=== PATIENT | male | born 1960 | race Caucasian/White ===

== ENCOUNTER → 2016-09-13 | Outpatient (CLI) | payer OTHER | LOC: MOB LAB 12:30 | PROVIDERS: ATTEND Physician Assistant | DX: L02.11 Cutaneous abscess of neck (principal); F17.210 Nicotine dependence, cigarettes, uncomplicated | CPT/HCPCS: 87070; 87077; 87186; 87205 ==

== ENCOUNTER 2016-10-12 07:16 | Emergency (ER) | payer OTHER ==
[2016-10-12] MEDS ORDERED: Lidocaine 1% 10 MG/ML - 20 ML VIAL SUBCUT ONE (07:39)
[2016-10-12] MEDS ORDERED: DIPH,PERTUSS,TET(ADACEL) VAC/PF 0.5 ML (Tdap) IM ONE (07:39)
[2016-10-12 07:42] VITALS: RESP 16; TEMP 97
[2016-10-12] MEDS ORDERED: BACITRACIN 0.9 GM PACKET OINT TOPICAL ONE ×2 (08:07→08:45)
--- NOTE | 2016-10-12 08:53 | PDOC ---
Fall HPI - General Chief Complaint: Fall Stated Complaint: fall with lac to head Date Seen by Provider: 10/12/16 Time Seen by Provider: 07:20 Source: POSITIVE: Patient, Spouse Exam Limitations: POSITIVE: No limitations Nurse's Notes Reviewed & Considered: Yes - History of Present Illness Initial Comments: The patient is a 56-year-old male. Patient got out of bed suddenly to go to the bathroom. He may have had a brief syncopal episode and he struck his head chest above the left eyebrow on the corner of the table, sustaining a 2.2 cm laceration here. See diagram. He also struck his left lateral thorax. He had no loss of consciousness after his head trauma. He got up and ambulated after the incident. No focal neurologic symptoms. No chest pain or palpitations. No GI or symptoms. Patient states he has a history of insomnia and he took 2 trazodone tablets last night for going to bed. Have you received a tetanus shot in the past 10 years?: No Body Location Affected: REPORTS: Head, Chest Timing: REPORTS: Abrupt Duration: 1/2 hour Severity: Moderate Context of Fall: REPORTS: Became Dizzy, Fainted (Possibly) Location of Fall: REPORTS: Home Fell From Height (in feet): 0 Quality: REPORTS: "Pain" (Left lateral ribs) Associated Symptoms: REPORTS: Recalls Injury, Recalls Coming to ER, Blow to Head. DENIES: Dazed, Seizure, Trouble Breathing, Memory Impairment, Lost Consciousness, Other Location of Injuries / Pain: REPORTS: Left, Head, Other (Left lateral thorax) Any Prior Injuries Related to Current Complaint?: No - Patient Home Medications Home Medications: Home Medications Lisinopril/Hydrochlorothiazide [Lisinopril-Hctz 20-12.5 Mg Tab] 1 unit PO QD # 90 tab 04/12/16 Trazodone HCl 200 mg PO BEDTIME 10/12/16 - Patient Allergies Allergies/Adverse Reactions: Allergies Allergy/AdvReac Type Severity Reaction Status Date / Time No Known Allergies Allergy Verified 10/12/16 07:29 Past Medical History - heen HEENT History: Denies History Cardiovascular History: Hypertension Respiratory History: Denies History Gastrointestinal History: Denies History Genitourinary History: Denies History Endocrine History: Denies History Musculoskeletal History: Denies History Neurological History: Denies History Blood Disorders: Denies History Psychiatric History: Denies History History of Sexually Transmitted Diseases: No Male Reproductive History: Denies History Cancer History: Denies History In Past Year Been Physically Harmed or Verbally Threatened: No History of MDRO: No History of Other Communicable Diseases: No Tobacco Use: Current Every Day Smoker Alcohol Use: Occasionally Substance Use Type: None Previous Surgical History: Yes Type / Date of Surgery: ORIF RIGHT INDEX FINGER Significant Family History: No pertinent family hx Past Medical History Reviewed: Reviewed - No Changes ROS - Limitations ROS Limitations: No Limitations Constitution: REPORTS: Denies Symptoms Cardiovascular: REPORTS: Denies Cardiac Symptoms Respiratory: REPORTS: Denies Resp Symptoms Neurological: REPORTS: Denies Neuro Symptoms Gastrointestinal: REPORTS: Denies GI Symptoms Endocrine: REPORTS: Denies Symptoms Musculoskeletal: REPORTS: Recent Injury (Left lateral thorax as above; see diagram.) Genitourinary: REPORTS: Denies Symptoms Eyes: REPORTS: Denies Symptoms ENT: REPORTS: Denies Symptoms Skin: REPORTS: Other (2.2 cm laceration above left eye) Lympathic: REPORTS: Denies Lympathic Symptoms Immunologic: POSITIVE: Denies Symptoms Psychiatric: POSITIVE: Denies Psych Symptoms Fall Physical Exam - General Appearance General Appearance: POSITIVE: Alert, Cooperative, No Acute Distress. NEGATIVE: No Evidence of Trauma - HEENT HEENT: POSITIVE: Eyes Inspection Nml, Ears Inspection Nml, Nose Inspection Nml, Oral/Dental Inspect. Nml, Pharynx Inspect. Nml, PERRL, EOMI. NEGATIVE: Head Inspection Nml (Laceration above left eye) - Pupil Size Pupil Size: 3 mm: Bilateral (PERRLA) - Neck Neck: POSITIVE: Non Tender, Painless ROM, Trachea Midline, Nexus Criteria Negative - Respiratory / CVS Respiratory / CVS: POSITIVE: No Ecchymosis, Breath Sounds Normal, No Respiratory Distress, Heart Sounds Normal, Rib Tenderness, See Diagram. NEGATIVE: Rib Palpable FX, Crepitus, SubQ Emphysema, Splinting, Paradoxical Movements, Decreased Breath Sounds, Ecchymosis, Swelling Peripheral Pulses: Radial (L): 2+, Femoral (R): 2+ - Abdomen Abdomen: Soft: (All Quadrants), Normal Bowel Sounds: (All Quadrants), Denies Tenderness: (All Quadrants), No Splenomegaly: (All Quadrants), No Hepatomegaly: (All Quadrants), No Guarding: (All Quadrants), No Rebound: (All Quadrants), No Palpable Pulse: (All Quadrants), No Palpabale Mass: (All Quadrants), No Distention: (All Quadrants), No Rigidity: (All Quadrants) - Neuro / Psych Neuro / Psych: POSITIVE: Oriented X3, care asst Normal As Tested, Motor Normal, Sensation Normal, Mood Appropriate, Affect Appropriate - Skin Skin: POSITIVE: Laceration (Above left eye), See Diagram - Back Back: POSITIVE: Normal Inspection, No CVA Tenderness, Non Tender, Painless ROM, No Vertebral Tenderness - Extremities Extremity Assessment: Non-Tender: (ALL), Normal ROM: (ALL), No Edema: (ALL), Normal Inspection: (ALL), No Swelling: (ALL) Joint Exam: POSITIVE: Joints Normal, Normal ROM, Normal Gait, Normal Weight Bearing Images - Head Head: 1 - Laceration - Complete Complete: 1 - Tenderness on palpation; no flail, crepitus, subcutaneous emphysema Procedures - Laceration/Wound Repair Did patient have a laceration repair: Yes Site of Laceration/Wound: Above left eye Wound Length (cm): 2.2 Wound's Depth, Shape: Into subcutaneous tissue, Irregular Time of Suture Placement:: 07:45 Distal CMS: Yes Skin Prep: Sterile Field Maintained, Sterile Drapes Applied, Sterile Dressing Applied, Other (Normal saline) Local Anesthesia Used - Indicate Amt Used in Comment: Lidocaine 1%: Yes Irrigated w/ Saline (mL): 20 Wound Explored: No foreign body removed Wound Debrided: Minimal Wound Repaired With: Sutures single layer Suture Size/Type: 6:0, Ethilon Number of Sutures: 10 Layer Closure?: No Drain Placement: No Sterile Dressing Applied?: Yes Procedure Note:: After local anesthesia with 1% lidocaine the laceration was sterilely irrigated with normal saline and explored. Wound was then repaired primarily with 6-0 Ethilon interrupted sutures. Fall Progress - Results Reviewed by me Xrays/CTs/US Reviewed by me: Yes Discussed with Radiologist: No Radiology Findings: AP chest x-ray with left rib detail shows no fractures, pulmonary contusions, pneumothorax or other abnormalities. - Patient's Progress Pain Medication Addressed: POSITIVE: Yes (Recommended Tylenol or Aleve) School/Work Release Addressed: POSITIVE: Yes (Patient declines a work excuse) Re-Examine Time:: 08:45 Re-Examine Comment: Primary closure complete Status: POSITIVE: Improved, Re-Examined - Consult Counseled: POSITIVE: Patient, Family, RE: Radiology Results, RE: DX, RE: Need for F/U Patient Care Time - Estimated PCT Patient Care Time (In Minutes): 50 Vital Signs - Recent Vital Signs Vital Signs: Vital Signs (Last 8 hours) Temp Pulse Resp BP Pulse Ox 10/12/16 07:16 97.0 F 71 16 150/105 95 - VS Reviewed Vital Signs Reviewed: Yes Discharge Clinical Impression: Laceration, Chest wall injury Discharge Disposition: Discharged to Home Condition: Stable Patient Instructions Given at Discharge: Laceration (ED), Contusion in Adults ( ED) Additional Instructions: I see no rib fractures or other abnormalities on your left rib x-ray. I do not think you have a rib fracture, but occasionally a patient will sustained a nondisplaced rib fracture which does not show up on x-ray. Please take deep breaths hourly to make sure your lungs expand well. Advil or Tylenol for pain. Warm moist compresses to chest wall. Return any time if you develop fevers, chills, cough, or any signs of pneumonia. Your facial laceration above your left eye should heal well. Keep clean. Return in 5-6 days for suture removal, or sooner if condition worsens in any way. Follow Up With: NONE,NONE [Primary Care Provider] - (Return to the emergency room in 5-6 days for suture removal, or sooner if condition worsens in any way.)
--- NOTE | 2016-10-12 12:32 | DI ---
XR RIBS W/PA CXR MIN 3VW,10/12/2016 7:40 AM: Clinical History: Left lower rib pain. Previous Exam: None at this facility. Findings: 3 views of the ribs are obtained, and demonstrate some old right lateral rib fractures. There is no new left lateral or posterior rib fracture. There is no evidence of pneumothorax. The lungs are clear. There is no infiltrate nor effusion. The c ardiomediastinum is unremarkable. Impression: 1. No acute rib fracture. 2. Healing right lateral rib fractures.
== END 2016-10-12 08:58 | disposition home or self-care (01) ==
LOC: ER 07:16
DX: S01.112A Laceration without foreign body of left eyelid and periocular area, initial encounter (principal); R42 Dizziness and giddiness; R07.81 Pleurodynia; W18.39XA Other fall on same level, initial encounter
CPT/HCPCS: 12011; 71101; 90471; 99283; J2001

== ENCOUNTER → 2016-10-14 | Outpatient (CLI) | payer OTHER ==
--- NOTE | 2016-10-14 15:43 | DI ---
XR RIBS W/PA CXR MIN 3VW,10/14/2016 2:01 PM: Clinical History: Chest wall pain. Previous Exam: None at this facility. Findings: Multiple views of the left ribs are obtained, and demonstrate mild irregularity of the fifth and sixt h lateral ribs seen only on one view.. There is also some mild contour irregularity of the seventh an d eighth posterior lateral ribs without definite fracture identified. There is no periosteal reaction . There is no pleural effusion. There is no pneumothorax. The cardiomediastinum and thoracic spine ar e unremarkable. Impression: Fifth and sixth posterior lateral left rib fractures of unknown chronicity. Question of possible the seventh and eighth rib fractures as well.
== END ==
LOC: MOB RAD 14:01
DX: R07.89 Other chest pain (principal); Z72.0 Tobacco use; W18.39XA Other fall on same level, initial encounter
CPT/HCPCS: 71101

== ENCOUNTER 2016-11-01 11:58 | Emergency (ER) | payer OTHER ==
[2016-11-01 12:40] VITALS: RESP 16; TEMP 96.9
[2016-11-01 12:50] LABS: HEMATOCRIT 44.2 % (42.0-52.0); HEMOGLOBIN 15.2 g/dL (14.0-18.0); MEAN CORPUSCULAR HEMOGLOBIN 31.4 PG (27-31); MEAN CORPUSCULAR HGB CONC 34.4 g/dL (33-37); MEAN CORPUSCULAR VOLUME 91.3 FL (80-90); MEAN PLATELET VOLUME 9.5 FL (7.4-12.2); NEUTROPHILS % (AUTO) 77.1 % (50-80); RED BLOOD COUNT 4.84 10^6/uL (4.70-6.10)
[2016-11-01 12:51] LABS: BASOPHILS # (AUTO) 0.04 10*3/UL; BASOPHILS % (AUTO) 0.5 % (0-1); BLOOD UREA NITROGEN 15 mg/dL (7-22); CALCIUM 9.3 mg/dL (8.7-10.7); EOSINOPHILS % (AUTO) 1.2 % (0-8); EST GLOMERULAR FILTRATION > 60 (>60 ml/min/1.73m(2)); LYMPHOCYTES # (AUTO) 1.15 10*3/uL; MONOCYTES # (AUTO) 0.61 10*3/UL (0.3-0.8); MONOCYTES % (AUTO) 7.3 % (5-15); NEUTROPHILS # (AUTO) 6.41 10*3/UL; PLATELET MORPHOLOGY COMMENT NORMAL MORPHOLOGY (NORM); RBC MORPHOLOGY COMMENT NORMAL MORPHOLOGY (NORM); SERUM ALBUMIN 4.1 g/dL (3.5-4.8); WBC MORPHOLOGY COMMENT NORMAL MORPHOLOGY (NORM)
--- NOTE | 2016-11-01 13:06 | DI ---
CT HEAD SCAN WITHOUT IV CONTRAST, 11/01/2016 12:29 PM : Clinical History: Confusion. Recent head injury. Previous Exam: None at this facility. Scans are obtained from the foramen magnum to the vertex without IV contrast. The 4th, 3rd, and lateral ventricles are of normal size, shape, position, and contour for the patient 's age. There are no abnormal areas of increased or decreased density. There is no evidence of an acu te hemorrhagic infarct or other intracranial hemorrhagic focus. There is no acute or old bland infarc t. There are no extracerebral mantles or shift of the midline structures. Bone window evaluation is n ormal. The paranasal sinuses are normal. READING: Normal non contrast CT head scan. There is no evidence of an acute intracranial hemorrhagic focus or of an acute bland infarct.
--- NOTE | 2016-11-01 13:30 | PDOC ---
General Adult HPI - General Chief Complaint: Neurological Complaints Stated Complaint: S/P HEAD INJURY, MEMORY LOSS, CONFUSION Date Seen by Provider: 11/01/16 Time Seen by Provider: 12:05 Source: POSITIVE: Patient, Spouse Exam Limitations: POSITIVE: No limitations Nurse's Notes Reviewed & Considered: Yes - History of Present Illness Initial Comment: The patient is a 56-year-old male who returns to the emergency department with continued headaches, memory disturbances, increased agitation and anxiety. He was seen here in the emergency department on October 12 after he fell in his bathroom and hit the left side of his head. He reports that several months ago he had been started on Wellbutrin to assist with smoking cessation. He seemed to be developing increased anxiety, agitation, insomnia and paranoia. He discontinued the medication about 6 weeks ago however was continuing to have some of those symptoms even despite discontinuation of the medication. He states that he had woke up in the middle of the night to go to the bathroom and subsequently slipped on the bathroom floor hitting his head. He did have brief loss of consciousness. He also hit the left chest wall. He came in by ambulance and was evaluated here in the emergency department. His chest x-ray at that time was normal showing no acute rib fracture or pneumothorax. His laceration on the left forehead was repaired and he was discharged home. He did follow up in the walk-in clinic several days later with continued left chest wall pain primarily. Rib films did reveal the presence of 2 nondisplaced fractures of indeterminate age. His reports that since hitting his head he has had short-term memory problems. She states that he will set his coffee down and then forget where it was for example. In addition he has increased anxiety and agitation and difficulty sleeping. His appetite has been poor. He did have one episode of nausea and vomiting a couple of days ago. He reports increased sensitivity to sounds and light. He does continue to have some headaches intermittently as well although currently denies headache. He denies any neck or back pain. He does have some continued left chest wall pain that is present usually only with movement or coughing. He denies any numbness or weakness in his extremities, chest pain other than the chest wall pain or increased shortness of breath, he has not had any abdominal pain. He does report weight loss of possibly up to 10 pounds since the fall. He denies any known history of diabetes or thyroid issues. He does take medication for high blood pressure. Have you received a tetanus shot in the past 10 years?: Yes - Patient Home Medications Home Medications: Home Medications Lisinopril/Hydrochlorothiazide [Lisinopril-Hctz 20-12.5 Mg Tab] 1 unit PO QD # 90 tab 04/12/16 Trazodone HCl 200 mg PO BEDTIME 10/12/16 Ibuprofen [Advil] 400 mg PO TID PRN 11/01/16 LORazepam Tab [Ativan Tab] 1 mg PO Q6H PRN #5 tablet 11/01/16 [place]-3 Fatty Acids [Fish Oil] 300 mg PO DAILY 11/01/16 Zolpidem Tartrate [Ambien] 5 mg PO BEDTIME 11/01/16 - Patient Allergies Allergies/Adverse Reactions: Allergies Allergy/AdvReac Type Severity Reaction Status Date / Time No Known Allergies Allergy Verified 11/01/16 12:08 Past Medical History - heen HEENT History: Denies History Cardiovascular History: Hypertension Respiratory History: Denies History Gastrointestinal History: Denies History Genitourinary History: Denies History Endocrine History: Denies History Musculoskeletal History: Denies History Prosthesis or Implant: No Neurological History: Denies History Blood Disorders: Denies History Psychiatric History: Denies History History of Sexually Transmitted Diseases: No Cancer History: Denies History In Past Year Been Physically Harmed or Verbally Threatened: No History of MDRO: No History of Other Communicable Diseases: No Tobacco Use: Current Every Day Smoker Alcohol Use: Occasionally Substance Use Type: None Previous Surgical History: Yes Type / Date of Surgery: ORIF RIGHT INDEX FINGER Significant Family History: No pertinent family hx Past Medical History Reviewed: Reviewed - No Changes ROS - Limitations ROS Limitations: No Limitations Constitution: DENIES: Chills, Fever Cardiovascular: REPORTS: Denies Cardiac Symptoms Respiratory: REPORTS: Denies Resp Symptoms Neurological: REPORTS: Confusion, Headache, Dizziness. DENIES: Numbness, Seizure Activity, Weakness Gastrointestinal: REPORTS: Nausea, Vomitting (1 a couple of days ago). DENIES : Abdominal Pain Musculoskeletal: DENIES: Back Pain, Neck Pain Eyes: REPORTS: Other (Some light sensitivity). DENIES: Vision Changes ENT: REPORTS: Other (Increased sensitivity to sound). DENIES: Earache, Ear Discharge, Nasal Drainage, Sore Throat Skin: DENIES: Rash Psychiatric: POSITIVE: Confusion, Anxiety General Adult Exam - General Appearance General Appearance: POSITIVE: Alert, Cooperative, No Acute Distress - HEENT HEENT: POSITIVE: Head Inspection Nml (He does have a healed wound to the left eyebrow with no surrounding swelling or erythema), Eyes Inspection Nml (Some mild diplopia which the patient states is normal for him), Ears Inspection Nml, Nose Inspection Nml, Pharynx Inspect. Nml - Neck Neck: POSITIVE: Normal Inspection, Other (C-spine is nontender) - Respiratory Respiratory: POSITIVE: No Respiratory Distress, Breath Sounds Normal - Cardiovascular Cardiovascular: POSITIVE: Regular Rate & Rhythm, No Murmur Peripheral Pulses: Radial (R): 2+, Radial (L): 2+ - Abdomen Abdomen: Soft: (All Quadrants), Denies Tenderness: (All Quadrants), No Distention: (All Quadrants) - Back Back: POSITIVE: Normal Inspection - Skin Skin: POSITIVE: Normal Color, No Rash - Extremities Extremity: Normal ROM: (All Extremities), Normal Inspection: (All Extremities) General Adult Progress - Results Reviewed by me Xrays/CTs/US Reviewed by me: Yes Discussed with Radiologist: Yes Radiology Findings: CT scan of his head is normal per radiologist. Lab Results Reviewed: Yes Lab Results:: Laboratory Results 11/01/16 Range/Units 12:37 WBC 8.32 (4.8-10.8) 10^3/uL RBC 4.84 (4.70-6.10) 10^6/uL Hgb 15.2 (14.0-18.0) g/dL Hct 44.2 (42.0-52.0) % MCV 91.3 H (80-90) FL MCH 31.4 H (27-31) PG MCHC 34.4 (33-37) g/dL RDW Std Deviation 45.8 (39-50) fL RDW Coeff of Yana 13.9 (11.5-14.5) % Plt Count 256 (140-350) 10*3/uL MPV 9.5 (7.4-12.2) FL Immature Gran % (Auto) 0.1 (0-5) % Neut % (Auto) 77.1 (50-80) % Lymph % (Auto) 13.8 (10-50) % Carson % (Auto) 7.3 (5-15) % Eos % (Auto) 1.2 (0-8) % Baso % (Auto) 0.5 (0-1) % Immature Gran # (Auto) 0.01 10*3/UL Neut # (Auto) 6.41 10*3/UL Lymph # (Auto) 1.15 10*3/uL Carson # (Auto) 0.61 (0.3-0.8) 10*3/UL Eos # (Auto) 0.10 10*3/UL Baso # (Auto) 0.04 10*3/UL WBC Morphology Comment Normal morphology (NORM) Plt Morphology Comment Normal morphology (NORM) RBC Morph Comment Normal morphology (NORM) Sodium 142 (135-145) meq/L Potassium 4.2 (3.8-5.2) meq/L Chloride 108 (98-112) meq/L Carbon Dioxide 24 (23-33) meq/L Anion Gap 10 (5-20) BUN 15 (7-22) mg/dL Creatinine 1.0 (0.70-1.50) mg/dL Estimated GFR > 60 (>60 ml/min/1.73m(2)) BUN/Creatinine Ratio 15.00 (6-20) Glucose 118 H (78-110) mg/dL Calculated Osmolality 295.0 H (267-292) mOsm/kg Calcium 9.3 (8.7-10.7) mg/dL Magnesium 2.0 (1.6-2.4) mg/dL Total Bilirubin 1.0 (0.3-1.2) mg/dL AST 22 (21-57) IU/L ALT 38 (21-72) IU/L Alkaline Phosphatase 73 (38-126) IU/L Total Protein 6.9 (6.1-8.0) g/dL Albumin 4.1 (3.5-4.8) g/dL Globulin 2.8 (2.50-4.10) g/dL Albumin/Globulin Ratio 1.40 (1.3-2.0) mg/g - Patient's Progress MDM / ED Course: The patient CT scan of his head was normal and his lab work was all essentially unremarkable. TSH is still pending as this will be unavailable in our laboratory until tomorrow. These findings were discussed with the patient and his . At this point his increased headaches, memory disturbance and to some degree of agitation and anxiety may be related to and/or exacerbated by his recent concussion. While he was here in the emergency room his did call and schedule an appointment to see his primary care provider tomorrow in [place]. I did recommend that he discuss with her potential use of mood stabilizer medication. In addition he may require referral to neurology for postconcussion syndrome. He was prescribed Ativan 1 mg every 6 hours as needed for severe agitation or anxiety. He will continue using ibuprofen or Tylenol for his rib pain. Return to the emergency room if any worsening or change in symptoms. - Consult Counseled: POSITIVE: Patient, Family, RE: Lab Results, RE: Radiology Results, RE : DX, RE: Need for F/U Patient Care Time - Estimated PCT Patient Care Time (In Minutes): 25 Vital Signs - Recent Vital Signs Vital Signs: Vital Signs (Last 8 hours) Temp Pulse Resp BP Pulse Ox 11/01/16 12:01 96.9 F 84 16 140/103 95 - VS Reviewed Vital Signs Reviewed: Yes Discharge Clinical Impression: Post concussion syndrome, Agitation Condition: Fair Prescriptions / Orders: LORazepam Tab [Ativan Tab] 1 mg PO Q6H PRN #5 tablet PRN Reason: Agitation Patient Instructions Given at Discharge: Post Concussion Syndrome (ED) Additional Instructions: The CAT scan of your head did not reveal any evidence of fracture or bleeding in the brain. Some of your symptoms are very consistent with postconcussion syndrome which can last sometimes for weeks or months after a concussion. Some of the symptoms of increased agitation and anxiety or starting even prior to the head injury as well. Your blood work done here today was all normal with the exception of the thyroid which is still pending and should be available sometime tomorrow. You have been prescribed Ativan 1 mg every 6 hours as needed for severe agitation or anxiety. Definitely keep your appointment with your primary care provider in [place] tomorrow to discuss ongoing other potential beneficial treatments and recommendations. She may recommend that she see a neurologist for the postconcussion aspect. Return to the emergency room if any worsening or change in symptoms. Continue Tylenol or ibuprofen as needed for rib pain. Follow Up With: NONE,NONE [Primary Care Provider] -
== END 2016-11-01 13:31 | disposition home or self-care (01) ==
LOC: ER 11:58
DX: F07.81 Postconcussional syndrome (principal); G44.309 Post-traumatic headache, unspecified, not intractable; R41.3 Other amnesia; R11.2 Nausea with vomiting, unspecified; I10 Essential (primary) hypertension; R42 Dizziness and giddiness; R45.1 Restlessness and agitation; W18.39XD Other fall on same level, subsequent encounter
CPT/HCPCS: 36415; 70450; 80053; 83735; 84443; 85025; 99283

== ENCOUNTER → 2016-11-30 | Outpatient (CLI) | payer OTHER | LOC: MOB LAB 14:27 | DX: L02.211 Cutaneous abscess of abdominal wall (principal) | CPT/HCPCS: 87070; 87077; 87185; 87186; 87205 ==